=== PATIENT | female | born 1970 | race Caucasian/White ===

== ENCOUNTER 2019-08-01 17:45 | Emergency (ER) | payer MEDICAID, OTHER ==
[~2019-08-01] VITALS: Ht 162.6 cm; Wt 100.0 kg
[2019-08-01 23:21] LABS: CHLORIDE 103 mEq/L (98-107)
[2019-08-01 23:32] LABS: BASOPHILS % 0.4 % (0.0-2.0); EOSINOPHILS % 1.3 % (0.0-5.0); HEMATOCRIT. 39.3 % (36.0-48.0); HEMOGLOBIN. 13.5 g/dL (12.0-16.0); LYMPHOCYTES % 36.9 % (20.0-50.0); MEAN CORPUSCULAR HEMOGLOBIN 29.3 pg (28.0-32.0); MEAN CORPUSCULAR VOLUME 85.2 fL (81.0-99.0); MONOCYTES % 8.5 % (2.0-8.0); NEUTROPHILS % 52.9 % (40.0-76.0); PLATELET 228 x1000/uL (130-400); RED BLOOD CELL COUNT 4.61 mill/uL (4.2-5.4); RED CELL DISTRIBUTION WIDTH 13.5 % (11.6-14.6)
[2019-08-02 01:28] VITALS: BP 123/65
== END 2019-08-02 01:32 | disposition home or self-care (01) ==
LOC: ER 17:45
DX: F41.0 Panic disorder [episodic paroxysmal anxiety] (principal)
CPT/HCPCS: 36415; 84484; 93005; 99284